=== PATIENT | male | born 1960 | race Caucasian/White ===

== ENCOUNTER → 2016-09-13 | Outpatient (CLI) | payer OTHER ==
--- NOTE | 2016-09-13 09:08 | MR ---
MRI CERVICAL SPINE: CLINICAL HISTORY: Neck pain into right shoulder for 2 months after fall injury. TECHNIQUE: Multiplanar, multisequence imaging of the cervical spine is performed without IV contrast. COMPARISON: Outside cervical spine x-ray September 02 2016. FINDINGS: Sagittal images of the cervical spine show the craniocervical junction to appear within nor mal limits. The cervical and upper thoracic spinal cord is normal in course, caliber, and signal. V ertebral alignment is straightened. The vertebral body heights are normal. There is mild disc space narrowing C5-C6 level and moderate disc space narrowing C6-C7 level redemonstrated. Mild to moderate spurring at these levels is again seen. Posterior disc herniations are noted at these levels on sagit ashley images. The bone marrow signal intensity is within normal limits. Axial images at the C2-C3 level shows left-sided uncovertebral facet degenerative changes causing asy mmetric mild left-sided neural foraminal narrowing. Spinal canal is preserved. Right-sided neural for amen is patent. Axial images at C3-C4 level show broad-based right paracentral disc protrusion effacing anterior thec al sac with right-sided uncovertebral facet degenerative changes and marginal spurring causing asymme tric moderate right-sided neural foraminal narrowing. Left-sided neural foramen is patent. Axial images at C4-C5 level show uncovertebral facet degenerative changes bilaterally with broad-base d right paracentral disc protrusion, there is effacement of the anterior thecal sac and moderate bila teral neural foraminal narrowing at this level identified. Axial images at C5-C6 level show broad-based posterior disc protrusion effacing anterior thecal sac u p to ventral surface of spinal cord on axial images 24 and 25, there is moderate to severe bilateral neural foraminal narrowing at this level identified. Axial images at C6-C7 level show broad-based left paracentral disc protrusion effacing anterior theca l sac up to ventral surface of spinal cord and causing advanced left and moderate to advanced right-s ided neural foraminal narrowing seen best on axial image 17. Axial images at C7-T1 level are felt within normal limits. IMPRESSION: Straightening of cervical spine with multilevel degenerative changes seen as detailed abo ve, most pronounced spinal canal effacement is at C5-C6 and C6-C7 levels, there is multilevel bilater al neural foraminal narrowing most prominent at left C6-C7 level noted.
== END | disposition home or self-care (01) ==
LOC: RADMRIMAIN 06:28
PROVIDERS: ATTEND Orthopaedic Surgery
DX: M99.71 Connective tissue and disc stenosis of intervertebral foramina of cervical region (principal); M47.812 Spondylosis without myelopathy or radiculopathy, cervical region
CPT/HCPCS: 72141